=== PATIENT | male | born 1945 | race Caucasian/White ===

== ENCOUNTER → 2020-08-22 | Outpatient (CLI) | payer MEDICARE, OTHER ==
[~2020-08-22] MED LIST: REGADENOSON 0.4 MG/5 ML SYRINGE ONE
== END | disposition home or self-care (01) ==
LOC: CFH 06:41
PROVIDERS: ATTEND Internal Medicine Cardiovascular Disease
DX: I08.1 Rheumatic disorders of both mitral and tricuspid valves (principal); I44.7 Left bundle-branch block, unspecified; R06.02 Shortness of breath; R00.2 Palpitations
CPT/HCPCS: 78452; 93017; 93306; 93356; A9502; J2785